=== PATIENT | female | born 1985 | race Caucasian/White ===

== ENCOUNTER 2018-08-16 14:05 | Emergency (ER) | payer MEDICARE, MEDICAID, SELFPAY ==
[2018-08-16 14:08] VITALS: BP 121/96; TEMP 36.7; BMI 19.5
--- NOTE | 2018-08-16 14:29 | ED.RN ---
Called Sarah Castro, guardian for pt and opbtained permission to treat. [phone]
--- NOTE | 2018-08-16 14:45 | ED.RN ---
PT ANGRY THAT VALIUM WAS NOT ORDERED. WILL NOT ANSWER ANY QUESTIONS FOR THIS RN. REFUSES MEDICATION . DR CAPPS
--- NOTE | 2018-08-16 15:05 | ED.VISSUMM ---
- ER Visit Summary Date of Service: 08/16/18 Chief Complaint: Anxiety History of Present Illness: The patient is a 32 F presenting for evaluation secondary to anxiety. Patient recently was moved from [facility] to [facility]. Patient has a guardian, and I guess typically stays in a supervised type situation. Patient reports that people were making fun of me and people were turning me into a duck when I am not one. Patient states that she is now feeling anxious because of this. She denies being suicidal homicidal or hallucinating. Physical Examination: Vital signs are within normal limits, patient is afebrile. General: Patient is well-nourished well-developed and in no acute distress. Head: Normocephalic, atraumatic Eyes: Pupils equal round and reactive bilaterally, extra occular motion intact bialterally ENT: Moist mucous membranes Neck: Supple, no lymphadenopathy, no JVD, no meningismus CVS: Heart regular rate and rhythm, no murmurs, rubs or gallops, radial pulses 2+ bilaterally Resp: Respirations nondistressed, lung sounds clear bilaterally Abdomen: Soft, nontender, nondistended, no palpable masses, normal bowel sounds Back: Nontender Extremities: Nontender, atraumatic, active full range of motion, no peripheral edema Skin: warm, no rashes, no petechia Neuro: Alert and oriented x 4, CN 2-12 intact, no lateralizing neurological defecits Psyc: Somewhat flat affect with minimal tearfulness. Test Results: None indicated Emergency Department Course and Treatment: Patient presented secondary to anxiety. She does not appear to pose a risk to herself or others. I offered the patient Vistaril which she states makes her violent. Patient was given half a milligram of Ativan, and was discharged. Disposition: Discharge Impression: 1. Anxiety This note was generated with Chatty dictation software. It may contain incorrect words, spelling, and punctuation that were not noted in review of the chart prior to signing ED Disposition - Plan for ED Patient: Disposition: Home or Assisted Living Chief Complaint: Anxiety Diagnosis: Anxiety Instructions: ED Panic Attack Referrals: Care Physician,No Primary [Primary Care Provider] - Counseling,Center [GROUP OF PHYSICIANS] - As Needed
--- NOTE | 2018-08-16 15:22 | ED.RN ---
pt refuses ativan. pt states i want a valium. dr mishra aware. pt to be dc'd. this rn into room. pt unsure how getting home. this rn pt asked for a number or contact that we could get ahold of. pt walks out. this rn attempts agin to ask pt how we can assist. pt refuses and leaves department
--- NOTE | 2018-08-16 15:36 | ED.RN ---
ATTEMPTED TO CALL [facility] TO UPDATE PT STATUS. NO ANSWER.ATTEMPTED A SECOND TIME WITH MESSAGE LEFT
== END 2018-08-16 15:38 | disposition home or self-care (01) ==
PROVIDERS: Emergency Provider Emergency Medicine
DX: F41.9 Anxiety disorder, unspecified (principal)
CPT/HCPCS: 99284

== ENCOUNTER 2023-05-12 12:36 | Emergency (ER) | payer MEDICAID, SELFPAY ==
[2023-05-12 12:37] VITALS: BP 132/94; PULSE 134; RESP 18; TEMP 36; O2SAT 93
--- NOTE | 2023-05-12 13:02 | CM.ED ---
Social Work [facility] custom shop worker Christal contacted to report patient will be coming into ED. Patient has been assessed by Yazmin with Crisis and will need medical clearance for placement. Yazmin presented to ED with patient and reviewed current concerns. Patient is actively delusional, stating she works for the [employer] and is not alert or oriented. Yazmin will finish patient's assessment and fax to ED. Per Yazmin patient lives in a jail, has a guardian, known MH diagnosis schizoaffective disorder. Patient has not been consistently taking MH medications. KALEB contacted [facility] for guardian information as it is not listed in our system. Sofya reports guardian's name is Yenni Dey, . [facility] Crisis left earlier today for guardian. SW left requesting a return phone call. Plan: medical clearance for psychiatric placement Pretty BRAMBILA, MAGGIE
[2023-05-12 13:10] VITALS: BMI 21.7
--- NOTE | 2023-05-12 13:23 | EKG12_ITS ---
Test Reason : MEDICAL CLEARANCE Blood Pressure : / mmHG Vent. Rate : 109 BPM Atrial Rate : 109 BPM P-R Int : 142 ms QRS Dur : 070 ms QT Int : 346 ms P-R-T Axes : 055 076 042 degrees QTc Int : 465 ms Sinus tachycardia Otherwise normal ECG Confirmed by CRUZ WASSERMAN, TAMY ([id number]), science editor RAIN FLORES ([id number]) on 05/18/2023 2:10:04 PM Referred By: Confirmed By:RAJ ARROYO MD
[2023-05-12] MEDS: Ziprasidone IM 20 MG/ML VIAL IM (13:28)
[2023-05-12] MEDS: LORazepam 2 MG/ML Syringe IM (14:04)
--- NOTE | 2023-05-12 14:08 | NURSING ---
NO OLD EKG
--- NOTE | 2023-05-12 14:26 | EDS_ITS ---
HPI <ELIZABETH Dickerson - Last Filed: 05/12/23 19:36> History of Present Illness Chief Complaint: Mental Health Narrative Narrative: Patient is a 37-year-old female with history of psychiatric disorder, schizophrenia who comes in via handcuffs by the police. Per the police, the patient has been off taking her meds, has been having hallucinations, threatening people around her. Patient once into the emergency department started swearing at staff, making threatening comments. Patient was immediately put in four-point restraints because she was not being compliant. Patient continuously talks to someone that is not there saying that is her . She believes she is working for the [employer] and that this is being deliberately done to stop her for making money. Patient is not being cooperative PFS <ELIZABETH Dickerson - Last Filed: 05/12/23 19:36> [facility] Medical History no medical history Home Medications aripiprazole 15 mg tablet 15 mg PO DAILY 05/12/23 [History Last Taken Unknown] buspirone 15 mg tablet 15 mg PO DAILY 05/12/23 [History Last Taken Unknown] trazodone 50 mg tablet 50 mg PO DAILY 05/12/23 [History Last Taken Unknown] Allergy/AdvReac Type Severity Reaction Status Date / Time No Known Allergies Allergy Verified 05/12/23 12:37 Social History Smoking Status: Current every day smoker tobacco type: cigarettes ROS <ELIZABETH Dickerson - Last Filed: 05/12/23 19:36> ROS ED ROS Narrative Review of symptoms was difficult secondary to patient not being cooperative. Not answering my questions. EXAM <ELIZABETH Dickerson - Last Filed: 05/12/23 19:36> Physical Exam Narrative Exam Narrative: Vital signs reviewed. Patient is alert however patient is having difficulty maintaining a conversation. Patient is experiencing visual and auditory hallucinations while was in the room with her. Patient is paranoid, using foul language, threatening staff. Patient meeting placed in four-point restraints secondary to her threatening behavior. HEET: Head normocephalic atraumatic, TMs clear bilaterally. Posterior pharynx is clear, moist mucous membranes. Nares clear bilaterally. Neck: Supple with no lymphadenopathy or tenderness. No signs of meningismus, negative jolt sign. Cardiac: Tachycardic rate no murmurs gallops or rubs, equal peripheral pulses bilaterally. Respiratory: Lungs clear to auscultation bilaterally. No chest tenderness. Abdomen: Soft, nontender, nondistended. No abdominal bruit or pulsatile masses. No hepatosplenomegaly Extremities: No peripheral edema, no signs of gross trauma or deformity. Active full range of motion of all extremities. Neuro: Cranial nerves II through XII intact, no focal neurological deficits. Skin: Clean dry and intact with no rash, purpura, petechiae, vesicles or pustules. Backs/flank: No CVA tenderness, no midline spinal tenderness, no deformity. Psych: Patient is not acting appropriate, patient is using threatening language. Patient is not able to be redirected, she does pose a threat to herself as well as others. She was placed in four-point restraint. Const Vital Signs: 05/12/23 12:37 05/12/23 16:02 05/12/23 18:00 Temperature 96.8 F L Temperature Source Temporal Pulse Rate 134 H 81 87 Respiratory Rate 18 16 16 Blood Pressure 132/94 H 148/81 H 131/78 H Blood Pressure Mean 106 103 95 Pulse Ox 93 98 99 Oxygen Delivery Method Room Air Room Air Room Air 05/12/23 22:00 05/13/23 01:00 Temperature Temperature Source Pulse Rate 81 Respiratory Rate 16 15 Blood Pressure 131/86 H Blood Pressure Mean 101 Pulse Ox 98 Oxygen Delivery Method Room Air Room Air <Dr. Kameron Chaudhary DO - Last Filed: 05/12/23 16:23> Physical Exam Const Vital Signs: 05/12/23 12:37 05/12/23 16:02 05/12/23 18:00 Temperature 96.8 F L Temperature Source Temporal Pulse Rate 134 H 81 87 Respiratory Rate 18 16 16 Blood Pressure 132/94 H 148/81 H 131/78 H Blood Pressure Mean 106 103 95 Pulse Ox 93 98 99 Oxygen Delivery Method Room Air Room Air Room Air 05/12/23 22:00 05/13/23 01:00 Temperature Temperature Source Pulse Rate 81 Respiratory Rate 16 15 Blood Pressure 131/86 H Blood Pressure Mean 101 Pulse Ox 98 Oxygen Delivery Method Room Air Room Air <Dr. Joe Valladares MD - Last Filed: 05/13/23 06:10> Physical Exam Const Vital Signs: 05/12/23 12:37 05/12/23 16:02 05/12/23 18:00 Temperature 96.8 F L Temperature Source Temporal Pulse Rate 134 H 81 87 Respiratory Rate 18 16 16 Blood Pressure 132/94 H 148/81 H 131/78 H Blood Pressure Mean 106 103 95 Pulse Ox 93 98 99 Oxygen Delivery Method Room Air Room Air Room Air 05/12/23 22:00 05/13/23 01:00 Temperature Temperature Source Pulse Rate 81 Respiratory Rate 16 15 Blood Pressure 131/86 H Blood Pressure Mean 101 Pulse Ox 98 Oxygen Delivery Method Room Air Room Air [facility] <ELIZABETH Dickerson - Last Filed: 05/12/23 19:36> [facility] Lab Data Labs: Laboratory Results - last 24 hr 05/12/23 05/12/23 14:30 14:37 WBC 8.5 RBC 4.52 Hgb 12.7 Hct 39.7 MCV 87.8 MCH 28.1 MCHC 32.0 RDW Std Deviation 48.2 H RDW Coeff of Sam 15.1 H Plt Count 311 MPV 9.6 Immature Gran % (Auto) 0.400 Neut % (Auto) 71.7 H Lymph % (Auto) 19.7 [place] % (Auto) 6.8 Eos % (Auto) 1.2 Baso % (Auto) 0.2 Absolute Neuts (auto) 6.1 Absolute Lymphs (auto) 1.68 Nucleated RBC % 0 Sodium 138 Potassium 3.2 L Chloride 107 Carbon Dioxide 27.0 Anion Gap 4 L BUN 8 Creatinine 0.80 Estim Creat Clear Calc 78.10 Est GFR (MDRD) Af Amer 102 Est GFR (MDRD) Non-Af 84 BUN/Creatinine Ratio 10.0 Glucose 120 H Calcium 8.7 Serum , Qual NEGATIVE Urine Opiates Screen NEGATIVE Urine Methadone Screen NEGATIVE Ur Barbiturates Screen NEGATIVE Ur Phencyclidine Scrn NEGATIVE Ur Amphetamines Screen POSITIVE H MDMA (Ecstasy) Screen NEGATIVE U Benzodiazepines Scrn NEGATIVE Urine Cocaine Screen NEGATIVE U Cannabinoids Screen NEGATIVE Ur Drug Screen Comment Ethyl Alcohol < 3.0 Treatment and Re-Evaluation :: Patient arrives to the emergency department angry, in handcuffs from the police. Patient presents to the emergency department for psychiatric illness, visual and auditory hallucinations. Patient placed in four-point a restraint immediately upon arrival secondary to threatening staff and herself. Patient was given Geodon 20 mg IM. Patient is then redosed with Ativan 2 mg IM. I spoke with the elementary school social worker, the patient has been evaluated by crisis, they do recommend placement. I do agree, patient is pink slipped by the police. Patient will receive laboratory values to medically clear the patient for transport. Patient CBC was unremarkable, chemistries were unremarkable. Patient's urine toxicology showed positive for amphetamines. Patient is not intoxicated by alcohol. Patient was given IM Benadryl as well as 2 mg of IM Ativan. Patient is now up walking, she was given some to eat, she is much more calm. Spoke with social work, patient will still be placed, crisis is currently trying to place the patient. She was given a nicotine patch. Patient has been out of the restraints for multiple hours. Patient stable. 193, patient remains calm, patient is eating and drinking. Patient spoke again with social work, I spoke with social work myself, the police did pink slip the patient. I did offer to write a picks up however per the elementary school social worker, does not need at this time. Patient is aware that she is going to be placed at another facility. Patient is stable. <Dr. Kameron Chaudhary, DO - Last Filed: 05/12/23 16:23> [facility] MDM Narrative Medical decision making narrative: I have personally performed a face to face assessment of the patient and have reviewed the STEPHANIE Note. I performed a substantive portion of the visit including all aspects of the following. My hunter findings include: History: Patient presents with agitation and abnormal behavior that became worse today. Patient was sent back to crisis who feels that the patient would need to be placed in a psychiatric facility. Patient is here for medical clearance. Crisis is attempting to place the patient in a psychiatric facility. Patient is argumentative and agitated on examination. Patient is a poor informant. Exam: Vital signs are stable except for mildly elevated blood pressure 132/94 and a mild tachycardia of 134. Patient is agitated and combative on examination. Heart was regular and tachycardic. Lungs are clear and equal bilaterally. Abdomen is soft. Bowel sounds are normal. There is no tenderness. Cranial nerves II through XII are intact. There are no focal motor or sensory deficits noted. Patient is agitated and combative on examination. Medical Decision Making: Medical screening labs will be obtained. CBC will be obtained to assess for leukocytosis and anemia. Basic metabolic profile will be obtained to assess for electrolyte abnormality and renal function. Serum hCG will be obtained to assess for . Urine tox screen will be obtained to assess for substance abuse. Serum alcohol level will be obtained to assess for alcohol intoxication. Patient was given a dose of Geodon here. Patient was still agitated and combative on reevaluation. Patient was given a dose of Ativan. Patient is resting comfortably at this time. CBC was reviewed and was within normal limits. Basic metabolic was reviewed and showed a mild hypokalemia of 3.2. Glucose was slightly elevated at 120. Urine tox screen was positive for amphetamines. Serum alcohol level was less than 3.0. Patient is medically cleared for psychiatric evaluation. Patient will need to be placed in a psychiatric facility. Lab Data Attestation: I reviewed the patient's lab results. Labs: Laboratory Results - last 24 hr 05/12/23 05/12/23 14:30 14:37 WBC 8.5 RBC 4.52 Hgb 12.7 Hct 39.7 MCV 87.8 MCH 28.1 MCHC 32.0 RDW Std Deviation 48.2 H RDW Coeff of Sam 15.1 H Plt Count 311 MPV 9.6 Immature Gran % (Auto) 0.400 Neut % (Auto) 71.7 H Lymph % (Auto) 19.7 [place] % (Auto) 6.8 Eos % (Auto) 1.2 Baso % (Auto) 0.2 Absolute Neuts (auto) 6.1 Absolute Lymphs (auto) 1.68 Nucleated RBC % 0 Sodium 138 Potassium 3.2 L Chloride 107 Carbon Dioxide 27.0 Anion Gap 4 L BUN 8 Creatinine 0.80 Estim Creat Clear Calc 78.10 Est GFR (MDRD) Af Amer 102 Est GFR (MDRD) Non-Af 84 BUN/Creatinine Ratio 10.0 Glucose 120 H Calcium 8.7 Serum , Qual NEGATIVE Urine Opiates Screen NEGATIVE Urine Methadone Screen NEGATIVE Ur Barbiturates Screen NEGATIVE Ur Phencyclidine Scrn NEGATIVE Ur Amphetamines Screen POSITIVE H MDMA (Ecstasy) Screen NEGATIVE U Benzodiazepines Scrn NEGATIVE Urine Cocaine Screen NEGATIVE U Cannabinoids Screen NEGATIVE Ur Drug Screen Comment Ethyl Alcohol < 3.0 <Dr. Joe Valladares MD - Last Filed: 05/13/23 06:10> MDM MDM Narrative Medical decision making narrative: I have personally performed a face to face assessment of the patient and have reviewed the STEPHANIE Note. I performed a substantive portion of the visit including all aspects of the following. My hunter findings include: History: Patient presents with agitation and abnormal behavior that became worse today. Patient was sent back to crisis who feels that the patient would need to be placed in a psychiatric facility. Patient is here for medical clearance. Crisis is attempting to place the patient in a psychiatric facility. Patient is argumentative and agitated on examination. Patient is a poor informant. Exam: Vital signs are stable except for mildly elevated blood pressure 132/94 and a mild tachycardia of 134. Patient is agitated and combative on examination. Heart was regular and tachycardic. Lungs are clear and equal bilaterally. Abdomen is soft. Bowel sounds are normal. There is no tenderness. Cranial nerves II through XII are intact. There are no focal motor or sensory deficits noted. Patient is agitated and combative on examination. Medical Decision Making: Medical screening labs will be obtained. CBC will be obtained to assess for leukocytosis and anemia. Basic metabolic profile will be obtained to assess for electrolyte abnormality and renal function. Serum hCG will be obtained to assess for . Urine tox screen will be obtained to assess for substance abuse. Serum alcohol level will be obtained to assess for alcohol intoxication. Patient was given a dose of Geodon here. Patient was still agitated and combative on reevaluation. Patient was given a dose of Ativan. Patient is resting comfortably at this time. CBC was reviewed and was within normal limits. Basic metabolic was reviewed and showed a mild hypokalemia of 3.2. Glucose was slightly elevated at 120. Urine tox screen was positive for amphetamines. Serum alcohol level was less than 3.0. Patient is medically cleared for psychiatric evaluation. Patient will need to be placed in a psychiatric facility. 0600, [place] Patient has been watched overnight. Initially she was standing at the edge of the room and mildly anxious. But she has been resting throughout the evening. There have been no issues. Up to this point I have not had to redose any medications. She is pending transport this morning. Lab Data Labs: Laboratory Results - last 24 hr 05/12/23 05/12/23 14:30 14:37 WBC 8.5 RBC 4.52 Hgb 12.7 Hct 39.7 MCV 87.8 MCH 28.1 MCHC 32.0 RDW Std Deviation 48.2 H RDW Coeff of Sam 15.1 H Plt Count 311 MPV 9.6 Immature Gran % (Auto) 0.400 Neut % (Auto) 71.7 H Lymph % (Auto) 19.7 [place] % (Auto) 6.8 Eos % (Auto) 1.2 Baso % (Auto) 0.2 Absolute Neuts (auto) 6.1 Absolute Lymphs (auto) 1.68 Nucleated RBC % 0 Sodium 138 Potassium 3.2 L Chloride 107 Carbon Dioxide 27.0 Anion Gap 4 L BUN 8 Creatinine 0.80 Estim Creat Clear Calc 78.10 Est GFR (MDRD) Af Amer 102 Est GFR (MDRD) Non-Af 84 BUN/Creatinine Ratio 10.0 Glucose 120 H Calcium 8.7 Serum , Qual NEGATIVE Urine Opiates Screen NEGATIVE Urine Methadone Screen NEGATIVE Ur Barbiturates Screen NEGATIVE Ur Phencyclidine Scrn NEGATIVE Ur Amphetamines Screen POSITIVE H MDMA (Ecstasy) Screen NEGATIVE U Benzodiazepines Scrn NEGATIVE Urine Cocaine Screen NEGATIVE U Cannabinoids Screen NEGATIVE Ur Drug Screen Comment Ethyl Alcohol < 3.0 Discharge Plan Triage Chief Complaint: Mental Health ED Midlevel Provider: Junior Logan ED Provider: Kameron Chaudhary Dx/Rx/DC Orders Prescriptions: No Action aripiprazole 15 mg tablet 15 mg PO DAILY buspirone 15 mg tablet 15 mg PO DAILY trazodone 50 mg tablet 50 mg PO DAILY Primary Care Provider: Care Physician,No Primary Referrals: Care Physician,No Primary [Primary Care Provider] -
--- NOTE | 2023-05-12 14:36 | CM.ED ---
Social Work SW contacted patient's guardian, attorney general Bri, and introduced self and role as [facility] SW. SW informed patient's guardian the patient was at [facility] ED and provided an update regarding safety concerns and [facility] recommendation for psychiatric placement. Patient's guardian agreeable to plan and provided consent to treat. SW to update guardian once placement is found. SW updated [facility]. Plan: medical clearance for psychiatric placement Pretty BRAMBILA, MAGGIE
--- NOTE | 2023-05-12 14:40 | ED.RN ---
PT ASKS TO GO TO BATHROOM, STATES SHE WILL COOPERATE WITH CARE. AMBULATED TO BATHROOM AND OBTAINED URINE SAMPLE. AFTER BACK IN BED PT REFUSING TO ALLOW BLOOD DRAW. AFTER REDIRECTION PT AGREES TO BLOOD DRAW. MEAL GIVEN, PT RESTING QUIETLY IN BED.
[2023-05-12 14:43] LABS: Absolute Lymphocyte Count 1.68 X10^3/uL (0.83-4.51); Absolute Neutrophil Count 6.1 X10^3/uL (2.0-7.7); Basophil# 0.02 X10^3/uL; Basophil% 0.2 % (0-1); Eosinophils% 1.2 % (0-5); Hematocrit 39.7 % (37-47); Hemoglobin 12.7 g/dL (12.0-15.0); Lymphocyte # 1.68 X10^3/ul (0.83-4.51); Lymphocyte % 19.7 % (19-41); Mean Corpuscular Hgb 28.1 pg (27.0-32.0); Mean Corpuscular Volume 87.8 fL (81-99); Mean Platelet Vol. 9.6 fl (6.2-12.0); Monocyte# 0.58 X10^3/uL; Monocyte% 6.8 % (0-10); NRBC Flagged by Analyzer 0 % (0-5); Neutrophil # 6.13 X10^3/uL (2.7-7.7); Neutrophil % 71.7 % (47-70); Platelet Count 311 K/mm3 (150-450); RBC Distribution Width CV 15.1 % (11.6-14.6); RBC Distribution Width SD 48.2 fl (35.1-43.9); Red Blood Count 4.52 M/mm3 (4.2-5.4); White Blood Count 8.5 K/mm3 (4.4-11.0)
[2023-05-12 14:48] LABS: Amphetamine Urine VISTA POSITIVE (<1000 ng/mL); Barbiturate Urine VISTA NEGATIVE (< 200 ng/mL); Benzodiazepine Urine VISTA NEGATIVE (< 200 ng/mL); Cocaine Urine VISTA NEGATIVE (< 300 ng/mL); Ecstacy Urine VISTA NEGATIVE (< 500 ng/mL); Methadone Urine VISTA NEGATIVE (< 300 ng/mL); PCP Urine VISTA NEGATIVE (< 25 ng/mL); THC Urine VISTA NEGATIVE (< 50 ng/mL); Vista UDS pH Range 5
[2023-05-12 14:51] LABS: Internal QC Validated? YES +Cl - CLEAR BKGD; Pregnancy, Serum, hCG Quali. NEGATIVE Negative
[2023-05-12 14:54] LABS: Alcohol, Blood (Medical)-Serum < 3.0 mg/dL
[2023-05-12 14:56] LABS: Anion Gap 4 (5-15); BUN 8 mg/dL (7-18); Calcium,Total 8.7 mg/dL (8.5-10.1); Chloride 107 mmol/L (98-107); EST Glomerular Filtration Rate 84 mL/min (>60); Est Glom Filt Rate - Afr Amer 102 mL/min (>60); Glucose 120 mg/dL (74-106); Potassium 3.2 mmol/L (3.5-5.1); Sodium Level 138 mmol/L (136-145)
--- NOTE | 2023-05-12 15:21 | CM.ED ---
Social Work SW faxed medical clearance documents to [facility] to assist with referrals for psychiatric placement. Pretty Peralta CREDIT AND COLLECTIONS REPRESENTATIVE, MAGGIE
[2023-05-12 16:02] VITALS: BP 148/81; PULSE 81; RESP 16; O2SAT 98
--- NOTE | 2023-05-12 17:44 | CM.ED ---
Addendum entered by Pretty Peralta 05/12/23 18:46: Miya with [facility] informed KALEB [facility] was unable to verify patient's insurance, SW to follow up. KALEB met with [facility] registration staff, staff able to print insurance verification. KALEB faxed updated facesheet and insurance verification to [facility] faxage. KALEB contacted [facility] with update. [facility] to fax to facilities. SW updated patient on referrals pending at [facility] and [facility]. Patient reports wanting to go to [facility]. SW explained it will depend on which facility can meet patient's needs, take her insurance and has bed availability. SW explained if those facilities can not accept patient, [facility] will send referrals to other facilities. Patient voiced understanding. Plan: referrals pending [facility] and [facility] MAGGIE Landin Addendum entered by Pretty Peralta 05/12/23 18:22: Miya from [facility] Crisis report referrals have been sent to [facility] and [facility]. Plan: referrals pending to [facility] and [facility] MAGGIE Landin Original Note: Social Work SW met with patient and introduced self and role as [facility] SW. Patient agreeable to speak with . Patient provided update regarding recommendation for psychiatric placement and referral process. Patient states she would rather go home. KALEB informed patient she was pink slipped as patient needs further evaluation by a psychiatrist and due to [facility] not being able to provide that service, the patient was being referred to another hospital. Patient voiced understanding. KALEB contacted [facility] for update regarding placement and spoke with Miya. Miya to inquire and will contact with update. Plan: referrals for psychiatric placement MAGGIE Landin
[2023-05-12 18:00] VITALS: BP 131/78; PULSE 87; RESP 16; O2SAT 99
--- NOTE | 2023-05-12 20:25 | ED.RN ---
No home meds given per MD.
--- NOTE | 2023-05-12 21:30 | CM.ED ---
Addendum entered by Pretty Peralta 05/12/23 22:35: Luz ANG informed patient has warrant and explained if patient is not at risk for hurting herself or others and has to wait to go to [place], that can happen from longterm with permission from Luz ANG captain. KALEB contacted Miya with [facility] Crisis for update. Miya reports patient was declined by [facility] due to not having anymore psych days with insurance. Patient is still pending at [facility] as they can accept patient's secondary insurance. Miya continuing to contact facilities that can accept patient's secondary insurance. KALEB reviewed conversation with [employer] AN[employer] Officer. Miya reports she will review with crisis workers if patient is unable to be accepted at other facilities and would have to wait for [facility] [place]. KALEB updated care team. Plan: referral pending at [facility] MAGGIE Landin Original Note: Social Work KALEB contacted [facility] Crisis to inquire about progress towards placement. Miya to contact facilities and will update KALEB. Miya contacted and reports patient is out of psych days with her insurance. Miya will be further reviewing with take off worker, Yenni, to discuss options. If patient's insurance can not cover psychiatric hospitalization, [facility] will likely have to refer patient to [place]. Plan: psychiatric hospitalization MAGGIE Landin
[2023-05-12] MEDS: Ibuprofen 600 MG Tablet PO (21:37)
[2023-05-12 22:00] VITALS: BP 131/86; PULSE 81; RESP 16; O2SAT 98
--- NOTE | 2023-05-12 22:12 | ED.RN ---
Pt standing in doorway of room, occasionally coming out into hallway and looking into other pt's rooms. Pt becoming more agitated with redirection, at one point states her 9 children are in the room next door.
--- NOTE | 2023-05-12 23:40 | NURSING ---
ACCEPTED TO [facility] BY DR. YUSUF. GOING TO THE C-UNIT AND NURSE TO NURSE IS [phone]. CAN'T SETUP TRANSPORT TILL [facility] CALLS AND SAYS THEY HAVE GOTTEN HER REGISTERED.
[2023-05-13 01:00] VITALS: RESP 15
[2023-05-13] MEDS: Ziprasidone IM 20 MG/ML VIAL IM (01:00)
--- NOTE | 2023-05-13 01:01 | ED.RN ---
medicated with geodon im as pt is becoming more difficult to redirect and is sitting outside of room using vulgar language
[2023-05-13 07:02] VITALS: BP 101/67; PULSE 86; RESP 15; TEMP 36.8; O2SAT 100
[2023-05-13] MEDS: Ibuprofen 600 MG Tablet PO (07:18)
--- NOTE | 2023-05-13 08:59 | NURSING ---
CALLED CRISIS ABOUT BED STATUS
--- NOTE | 2023-05-13 09:03 | NURSING ---
ACCEPTED AT [facility]
--- NOTE | 2023-05-13 09:13 | NURSING ---
[facility] [address] DR YUSUF N-[id number] [phone]
[2023-05-13 09:35] VITALS: BP 116/66; PULSE 84; RESP 14; O2SAT 100
[2023-05-13 10:26] VITALS: BP 116/66; PULSE 84; RESP 14; O2SAT 99
== END 2023-05-13 10:28 ==
PROVIDERS: Nurse Practitioner; Emergency Provider Emergency Medicine; Visit Provider Emergency Medicine
DX: R44.0 Auditory hallucinations (principal); F17.210 Nicotine dependence, cigarettes, uncomplicated; Z79.899 Other long term (current) drug therapy; R44.1 Visual hallucinations
CPT/HCPCS: 36415; 80048; 80307; 82077; 84703; 85025; 93005; 96372; 99285; J3486